=== PATIENT | female | born 1985 | race Caucasian/White ===

== ENCOUNTER 2018-06-17 21:48 | Emergency (ER) | payer OTHER ==
--- NOTE | 2018-06-17 22:02 | ED Physician Documentation ---
PD HPI CHEST PAIN - Stated complaint Stated Complaint: CHEST PX - Chief complaint Chief Complaint: Cardiac - History obtained from History obtained from: Patient - History of Present Illness Timing - onset: Enter time (19:30), Today Timing - onset during: Rest (sitting in car) Timing - details: Abrupt onset Quality: Pressure (heaviness), Tightness Location: Substernal Radiation: Other (does not radiate) Improved by: Nothing Worsened by: Other (no exacerbating factors) Associated symptoms: No: Shortness of air, Diaphoresis Similar symptoms before: Has not had sx before Recently seen: Not recently seen (bilateral knee surgery March 11) Review of Systems Constitutional: denies: Fever, Chills, Sweats Cardiac: reports: Chest pain / pressure. denies: Palpitations, Pedal edema, Calf pain Respiratory: reports: Reviewed and negative GI: denies: Abdominal Pain, Nausea, Vomiting PD PAST MEDICAL HISTORY - Past Medical History Past Medical History: Yes Other Past Medical History: yykqkqk-baytk-kzpuo, ovarian cysts, anemia (iron deficiency) - Past Surgical History Past Surgical History: Yes Ortho: Other (bilateral knee surgery (tendon repair)) - Allergies Allergies/Adverse Reactions: Allergies Allergy/AdvReac Type Severity Reaction Status Date / Time acetaminophen [From Vicodin] Allergy Itching Verified 06/17/18 23:39 carbamazepine [From Tegretol] Allergy Unknown Verified 06/17/18 23:39 hydrocodone [From Vicodin] Allergy Itching Verified 06/17/18 23:39 hydromorphone [From Dilaudid] Allergy Itching Verified 06/17/18 23:39 lithium Allergy Hives Verified 06/17/18 23:39 meperidine [From Demerol] Allergy Respiratory Verified 06/17/18 23:39 methadone Allergy Itching Verified 06/17/18 23:39 morphine Allergy Unknown Verified 06/17/18 23:39 oxycodone [From Percocet] Allergy Itching Verified 06/17/18 23:39 Sulfa (Sulfonamide Allergy Hives Verified 06/17/18 23:39 Antibiotics) tetanus immune globulin Allergy Respiratory Verified 06/17/18 23:39 PD ED PE NORMAL - Vitals Vital signs reviewed: Yes - General General: Alert and oriented X 3, No acute distress, Well developed/nourished - Cardiac Cardiac: RRR, No murmur - Respiratory Respiratory: No respiratory distress, Clear bilaterally - Abdomen Abdomen: Soft, Non tender - Derm Derm: Normal color, Warm and dry - Extremities Extremities: No edema Results - Vitals Vitals: Vital Signs - 24 hr 06/17/18 06/18/18 21:57 00:56 Temperature 37.1 C Heart Rate 101 H 84 Respiratory 18 20 Rate Blood Pressure 118/96 H 105/80 O2 Saturation 100 99 Oxygen O2 Source Room air - EKG (time done) No standard instances Rate: Rate (enter#) (97) Rhythm: NSR [place]: Normal Intervals: Normal GA QRS: Normal Ischemia: Normal ST segments - Labs Labs: Laboratory Tests 06/17/18 06/17/18 06/17/18 23:24 23:24 23:24 WBC 8.4 RBC 4.36 Hgb 12.1 Hct 35.5 L MCV 81.3 MCH 27.6 MCHC 34.0 RDW 13.1 Plt Count 189 MPV 8.7 Neut # (Auto) 5.5 Lymph # (Auto) 2.1 [place] # (Auto) 0.6 Eos # (Auto) 0.1 Baso # (Auto) 0.1 Absolute Nucleated RBC 0.00 Nucleated RBC % 0.0 D-Dimer Sodium 135 Potassium 3.6 Chloride 103 Carbon Dioxide 26 Anion Gap 6.0 BUN 14 Creatinine 0.4 Estimated GFR (MDRD) 184 Glucose 101 H Calcium 9.1 Troponin I < 0.04 06/17/18 23:25 WBC RBC Hgb Hct MCV MCH MCHC RDW Plt Count MPV Neut # (Auto) Lymph # (Auto) [place] # (Auto) Eos # (Auto) Baso # (Auto) Absolute Nucleated RBC Nucleated RBC % D-Dimer < 200.0 L Sodium Potassium Chloride Carbon Dioxide Anion Gap BUN Creatinine Estimated GFR (MDRD) Glucose Calcium Troponin I - Rads (name of study) chest xray Radiology: Prelim report reviewed, See rad report PD MEDICAL DECISION MAKING - ED course Complexity details: reviewed results, re-evaluated patient, considered differential, d/w patient Departure - Departure Disposition: 01 Home, Self Care Clinical Impression: Chest pain Condition: Good Instructions: ED Chest Pain Atypical Unkn Cause Follow-Up: AJ MARTINS PA-C [Primary Care Provider] - Discharge Date/Time: 06/18/18 01:15
--- NOTE | 2018-06-17 23:07 | XRAY Report ---
Reason: chest pain Procedure Date: 06/17/2018 Accession Number: [id number] / [id number] Procedure: XR - Chest 2 View X-Ray CPT Code: 40246 FULL RESULT: EXAM: CHEST RADIOGRAPHY EXAM DATE: 06/17/2018 11:02 PM. CLINICAL HISTORY: Chest pain. COMPARISON: None. TECHNIQUE: 2 views. FINDINGS: Lungs/Pleura: No alveolar consolidation or pleural effusion seen. No pneumothorax. Mediastinum: Heart and mediastinal contours are unremarkable. Other: None. IMPRESSION: 1. No acute abnormality seen in the chest. RADIA
[2018-06-17 23:28] LABS: BASOPHILS # (AUTO) 0.1 10^3/uL (0.0-0.1); BASOPHILS % (AUTO) 0.8 %; EOSINOPHILS # (AUTO) 0.1 10^3/uL (0.0-0.7); EOSINOPHILS % (AUTO) 1.4 %; HGB - HEMOGLOBIN 12.1 g/dL (12.0-16.0); LYMPHOCYTES # (AUTO) 2.1 10^3/uL (1.5-3.5); LYMPHOCYTES % (AUTO) 25.1 %; MEAN CORPUSCULAR HEMOGLOBIN 27.6 pg (27.0-31.0); MEAN CORPUSCULAR VOLUME 81.3 fL (81.0-99.0); MEAN PLATELET VOLUME 8.7 fL (7.9-10.8); MONOCYTES # (AUTO) 0.6 10^3/uL (0.0-1.0); MONOCYTES % (AUTO) 7.1 %; NEUTROPHILS # (AUTO) 5.5 10^3/uL (1.5-6.6); NEUTROPHILS % (AUTO) 65.6 %; PLT - PLATELET COUNT 189 10^3/uL (130-450); RED BLOOD COUNT 4.36 10^6/uL (4.20-5.40); RED CELL DISTRIBUTION WIDTH 13.1 % (12.0-15.0); WHITE BLOOD COUNT 8.4 x10^3/uL (4.8-10.8)
[2018-06-17 23:42] LABS: CALCIUM 9.1 mg/dL (8.5-10.3); CREATININE 0.4 mg/dL (0.4-1.0)
[2018-06-18 00:57] VITALS: BP 105/80
== END 2018-06-18 01:15 | disposition home or self-care (01) ==
LOC: ED 21:48
DX: R07.9 Chest pain, unspecified (principal)
CPT/HCPCS: 36415; 71046; 80048; 84484; 85025; 85379; 93005; 99283

== ENCOUNTER 2018-07-07 08:06 | Emergency (ER) | payer OTHER ==
[2018-07-07 08:15] VITALS: BP 138/99
--- NOTE | 2018-07-07 08:58 | ED Physician Documentation ---
History of Present Illness - Stated complaint Stated Complaint: UNDER ARM SWELLING - Chief complaint Chief Complaint: General - Additonal information Additional information: hx from pt 33 f to ED with R axillary adenopathy and right upper chest erythema and swelling seen by PMD a few days ago at [facility] and had a sono that showed abn axillary adenopathy told to go to the ER of worse no fever hurts to breath no abd pian no leg swelling no hand infection denies preg s/p tubal not breast feeding Review of Systems Constitutional: reports: Other (ill feeling). denies: Fever, Chills Cardiac: reports: Chest pain / pressure (right upper with swelling and mild erythema) Respiratory: denies: Dyspnea GI: denies: Abdominal Pain : denies: Now EGA Musculoskeletal: reports: Other (axillary pain and nodes) Endocrine: denies: Easy bruising / bleeding Immunocompromised: denies: Immunocompromised PD PAST MEDICAL HISTORY - Past Surgical History Past Surgical History: Yes Ortho: Other - Present Medications Home Medications: Ambulatory Orders Medication Instructions Recorded Confirmed Cephalexin [Keflex] 500 mg PO Q6H #28 capsule 07/07/18 traMADol [Ultram] PRN 07/07/18 - Allergies Allergies/Adverse Reactions: Allergies Allergy/AdvReac Type Severity Reaction Status Date / Time acetaminophen [From Vicodin] Allergy Itching Verified 07/07/18 08:15 carbamazepine [From Tegretol] Allergy Unknown Verified 07/07/18 08:15 hydrocodone [From Vicodin] Allergy Itching Verified 07/07/18 08:15 hydromorphone [From Dilaudid] Allergy Itching Verified 07/07/18 08:15 lithium Allergy Hives Verified 07/07/18 08:15 meperidine [From Demerol] Allergy Respiratory Verified 07/07/18 08:15 methadone Allergy Itching Verified 07/07/18 08:15 morphine Allergy Unknown Verified 07/07/18 08:15 oxycodone [From Percocet] Allergy Itching Verified 07/07/18 08:15 Sulfa (Sulfonamide Allergy Hives Verified 07/07/18 08:15 Antibiotics) tetanus immune globulin Allergy Respiratory Verified 06/17/18 23:39 - Social History Does the pt smoke?: No Smoking Status: Never smoker Does the pt drink ETOH?: No Does the pt have substance abuse?: No - Immunizations Immunizations are current?: Yes PD ED PE NORMAL - Vitals Vital signs reviewed: Yes - General General: Alert and oriented X 3 - Neck Neck: No: No adenopathy (no abd ant cervial nodes) - Cardiac Cardiac: RRR - Respiratory Respiratory: No respiratory distress, Other (ant upper right chest with mild erytehma and fullness but no discreet mass, no palp breast mass and no nipple dc, no supra infraclavicular adenopathy appreciated) - Abdomen Abdomen: Soft, Non tender, No organomegaly - Derm Derm: Other (erythema to ant R chest wall) - Extremities Extremities: Other (R axillary adenopathy, no inguinal adenopathy) - Neuro Neuro: Alert and oriented X 3 Results - Vitals Vitals: Vital Signs - 24 hr 07/07/18 08:10 Temperature 36.2 C L Heart Rate 87 Respiratory 16 Rate Blood Pressure 138/99 H O2 Saturation 98 Oxygen O2 Source Room air - Labs Labs: Laboratory Tests 07/07/18 07/07/18 07/07/18 09:03 09:03 09:19 WBC 4.0 L RBC 4.54 Hgb 12.3 Hct 35.9 L MCV 79.1 L MCH 27.1 MCHC 34.2 RDW 13.8 Plt Count 170 MPV 8.1 Neut # (Auto) 1.9 Lymph # (Auto) 1.7 [place] # (Auto) 0.4 Eos # (Auto) 0.1 Baso # (Auto) 0.0 Absolute Nucleated RBC 0.00 Nucleated RBC % 0.0 Sodium 134 L Potassium 3.5 Chloride 104 Carbon Dioxide 22 Anion Gap 8.0 BUN 14 Creatinine 0.5 Estimated GFR (MDRD) 142 Glucose 100 Calcium 9.1 Ur Specific [place] 1.025 Urine HCG, Qual NEGATIVE - Rads (name of study) CT chest with contrast Radiology: See rad report (bulky adenopathy to R axillary region up to 3.6 cm could be malignant infectious or inflammatory, fat stranding, 1 cm L breast nodule, 0.4 cm R lung nodule) PD MEDICAL DECISION MAKING - ED course ED course: abn axillary adenopathy concern for malignancy referred pt to surg for bx and PMD for mammo and further wup I called and spoke to PMD personally to relay concerns and my thoughts and plans Departure - Departure Disposition: 01 Home, Self Care Clinical Impression: Axillary adenopathy, Breast nodule, Lung nodule Condition: Good Instructions: Lymphadenopathy Follow-Up: BRANDY MCGEE [Primary Care Provider] - Luis Cox MD [Provider Admit Priv/Credential] - (for node biopsy) Prescriptions: Cephalexin [Keflex] 500 mg PO Q6H #28 capsule Comments: The blood work was fine. The CT scan showed numerous abnormally enlarged lymph nodes in the right axillary (armpit region) There were no abnormal nodes in the other axillae or in the chest. These nodes could be enlarged due to infection or due to cancer We can do a trial of antibiotics But you also need to be checked for cancer There was a nodule in your right lung and in your left breast. You will need further work up beyond what I can do in the ER - specifically you need a mammogram and a biopsy of the abnormal lymph nodes and perhaps CT scans of other parts of your body. I have referred you to the surgeons office for the biopsy And called your PMD to let him/her know to order the mammogram Forms: Activity restrictions Discharge Date/Time: 07/07/18 13:30
[2018-07-07 09:19] LABS: BASOPHILS % (AUTO) 0.2 %; EOSINOPHILS # (AUTO) 0.1 10^3/uL (0.0-0.7); EOSINOPHILS % (AUTO) 2.5 %; HGB - HEMOGLOBIN 12.3 g/dL (12.0-16.0); LYMPHOCYTES # (AUTO) 1.7 10^3/uL (1.5-3.5); LYMPHOCYTES % (AUTO) 41.7 %; MEAN CORPUSCULAR HEMOGLOBIN 27.1 pg (27.0-31.0); MEAN CORPUSCULAR HGB CONC 34.2 g/dL (32.0-36.0); MEAN CORPUSCULAR VOLUME 79.1 fL (81.0-99.0); MEAN PLATELET VOLUME 8.1 fL (7.9-10.8); MONOCYTES # (AUTO) 0.4 10^3/uL (0.0-1.0); MONOCYTES % (AUTO) 9.8 %; NEUTROPHILS # (AUTO) 1.9 10^3/uL (1.5-6.6); NEUTROPHILS % (AUTO) 45.8 %; PLT - PLATELET COUNT 170 10^3/uL (130-450); RED BLOOD COUNT 4.54 10^6/uL (4.20-5.40); RED CELL DISTRIBUTION WIDTH 13.8 % (12.0-15.0)
[2018-07-07 09:29] LABS: CALCIUM 9.1 mg/dL (8.5-10.3); CREATININE 0.5 mg/dL (0.4-1.0)
[2018-07-07 09:44] LABS: HCG UR QUAL NEGATIVE
[2018-07-07] MEDS ORDERED: IOVERSOL 320 100 ML VIAL IVP ONE ×2 (10:33→10:59)
--- NOTE | 2018-07-07 12:00 | CT Report ---
Reason: R upper chest swellign and erythema axillary adeno Procedure Date: 07/07/2018 Accession Number: [id number] / [id number] Procedure: CT - Chest W/ CPT Code: FULL RESULT: EXAM: CT CHEST EXAM DATE: 07/07/2018 10:58 AM. CLINICAL HISTORY: Right upper chest wall swelling, erythema and adenopathy. COMPARISONS: None. TECHNIQUE: Routine helical CT imaging was performed through the chest. IV contrast: 72 cc of Optiray 320. Reconstructions: Coronal and sagittal. In accordance with CT protocol optimization, one or more of the following dose reduction techniques were utilized for this exam: automated exposure control, adjustment of mA and/or KV based on patient size, or use of iterative reconstructive technique. FINDINGS: Lungs/Pleura: No consolidation or edema. No effusions or pneumothorax. No endobronchial lesions. No bronchial wall thickening. 0.4 cm anterolateral right lower lobe nodule abutting the fissure on image 4, 31. No concerning lung mass. Mediastinum: Normal. No adenopathy or masses. The heart and great vessels are normal. Bones: No osteoblastic or osteolytic lesions. Gentle convex to the left curvature of the midthoracic spine. Visualized Abdomen: Small paraesophageal hernia. No adrenal nodules are identified. Spleen is unremarkable. Normal pancreas. Normal common bile duct and gallbladder. Visualized portions of the liver and kidneys are normal. No bulky upper abdominal adenopathy. Other: No definite breast mass. At least 2 large right axillary lymph nodes measuring 3.6 x 2.5 cm on image 15 and 1.9 x 1.4 cm on image 18 are noted. Additional smaller subcentimeter lymph nodes are present in the right axillary region. Mild fat stranding is present in the right axillary region. No significant left axillary or internal mammary adenopathy. 1 cm central left breast nodule on image 3, 26. No definite right-sided breast mass. IMPRESSION: 1. Bulky right axially adenopathy as described above. Both malignant and infectious/inflammatory processes are in the differential. No associated mediastinal or hilar, supraclavicular, internal mammary or left axillary adenopathy. Recommend workup to exclude malignancy. Patient may benefit from a CT of the abdomen and pelvis. 2. 0.4 cm right lower lobe nodule. No consolidation, effusions or pneumothorax. 3. Indeterminate 1 cm left breast nodule. This could be better evaluated with ultrasound on an outpatient basis. No right breast mass lesion. RADIA
== END 2018-07-07 13:30 | disposition home or self-care (01) ==
LOC: ED 08:06
DX: R59.0 Localized enlarged lymph nodes (principal); N63.0 Unspecified lump in unspecified breast; R91.1 Solitary pulmonary nodule
CPT/HCPCS: 36415; 71260; 80048; 81025; 85025; 87040; 99283; Q9967

== ENCOUNTER 2018-07-22 14:18 | Outpatient (CLI) | payer OTHER | END 2018-07-22 14:19 | disposition home or self-care (01) | LOC: EMS 14:18 | PROVIDERS: ATTEND Surgery | DX: R10.9 Unspecified abdominal pain (principal); R55 Syncope and collapse; R11.2 Nausea with vomiting, unspecified; M25.511 Pain in right shoulder; M79.601 Pain in right arm ==

== ENCOUNTER 2018-07-22 14:44 | Emergency (ER) | payer OTHER ==
[2018-07-22] MEDS ORDERED: DEXAMETHASONE 10 MG/ML VIAL IVP STA (15:16)
[2018-07-22] MEDS ORDERED: SODIUM CHLORIDE 0.9% 1,000 ML IV ONE ×2 (15:16→16:27)
--- NOTE | 2018-07-22 15:19 | ED Physician Documentation ---
PD HPI SYNCOPE - Stated complaint Stated Complaint: SYNCOPE - Chief complaint Chief Complaint: Abd Pain - History obtained from History obtained from: Patient - History of Present Illness Witnessed: Witnessed Timing - onset: Today Duration: Seconds Preceding symptoms: Vision changes, Light headed, Generalized weakness Associated symptoms: Nausea / vomiting. No: Seizure, Incontinant of urine, Incontinant of stool, Headache, Vision changes Contributing factors: Decreased PO intake, Just stood up Injury occurred: None Similar symptoms before: Has not had sx before Recently seen: Emergency Dept - Additional information Additional information: 33-year-old female with a history of Eeghkem-Xzodf-Wqnxx tooth has developed some pain in her right hand and some axillary adenopathy. She does have some cats and has had multiple scratches to her hands. She reports that she was seen in the emergency department more than 10 days ago with adenopathy and she has fi nished her antibiotic. Today she was at home went to sit on the commode and found herself slumped against the wall. She then went in to get her up for his watch and found that she had a second syncopal episode in the room. She did not injure herself on either these episodes. She does indicate that she has had some vomiting today and has not been able to hold down any water. She reports that yesterday she drank 10 bottles of water. Review of Systems Constitutional: reports: Fever, Chills, Fatigue Eyes: denies: Decreased vision Ears: denies: Ear pain Nose: denies: Rhinorrhea / runny nose, Congestion Throat: denies: Sore throat Cardiac: denies: Chest pain / pressure, Palpitations Respiratory: denies: Dyspnea, Cough GI: reports: Nausea, Vomiting. denies: Abdominal Pain : denies: Dysuria, Frequency Skin: denies: Rash Musculoskeletal: reports: Extremity pain. denies: Neck pain, Back pain Neurologic: reports: Generalized weakness. denies: Focal weakness, Numbness PD PAST MEDICAL HISTORY - Past Surgical History Past Surgical History: Yes Ortho: Other - Present Medications Home Medications: Ambulatory Orders Medication Instructions Recorded Confirmed traMADol [Ultram] 50 mg PO PRN PRN 07/07/18 07/22/18 Azithromycin [Zithromax] 250 mg PO DAILY #6 tablet 07/22/18 - Allergies Allergies/Adverse Reactions: Allergies Allergy/AdvReac Type Severity Reaction Status Date / Time acetaminophen [From Vicodin] Allergy Itching Verified 07/22/18 14:56 carbamazepine [From Tegretol] Allergy Unknown Verified 07/22/18 14:56 hydrocodone [From Vicodin] Allergy Itching Verified 07/22/18 14:56 hydromorphone [From Dilaudid] Allergy Itching Verified 07/22/18 14:56 lithium Allergy Hives Verified 07/22/18 14:56 meperidine [From Demerol] Allergy Respiratory Verified 07/22/18 14:56 methadone Allergy Itching Verified 07/22/18 14:56 morphine Allergy Unknown Verified 07/22/18 14:56 oxycodone [From Percocet] Allergy Itching Verified 07/22/18 14:56 Sulfa (Sulfonamide Allergy Hives Verified 07/22/18 14:56 Antibiotics) tetanus immune globulin Allergy Respiratory Verified 06/17/18 23:39 - Social History Does the pt smoke?: No Smoking Status: Never smoker Does the pt drink ETOH?: No Does the pt have substance abuse?: No - Immunizations Immunizations are current?: Yes PD ED PE NORMAL - Vitals Vital signs reviewed: Yes (normal ) - General General: Alert and oriented X 3, No acute distress, Well developed/nourished - HEENT HEENT: Atraumatic, PERRL, EOMI - Neck Neck: Supple, no meningeal sign, No bony TTP - Cardiac Cardiac: No murmur, Other (tachy to 100) - Respiratory Respiratory: No respiratory distress, Clear bilaterally - Abdomen Abdomen: Soft, Non tender - Back Back: No CVA TTP, No spinal TTP - Derm Derm: Normal color, Warm and dry, No rash - Extremities Extremities: No deformity, No edema, Other (There are multiple small scratches to the fingers on the right hand (patient has a cat). There is some tenerness and fullness to the extensor area of the right index and middle finger. This area is tender to direct palpation with retention of ROM. There is tender adenopathy in the right axilla that is about 1cm in size without overlying erythema or fluctuance. ) - Neuro Neuro: Alert and oriented X 3, lesson instructor 2-12 intact, No motor deficit, No sensory deficit, Normal speech Eye Opening: Spontaneous Motor: Obeys Commands Verbal: Oriented GCS Score: 15 - Psych Psych: Normal mood, Normal affect Results - Vitals Vitals: Vital Signs - 24 hr 07/22/18 07/22/18 07/22/18 14:51 15:03 16:56 Temperature 36.8 C Heart Rate 98 96 97 Respiratory 18 18 16 Rate Blood Pressure 105/69 103/66 101/71 O2 Saturation 99 97 99 Oxygen O2 Source Room air - EKG (time done) 1510 Rate: Rate (enter#) (92) Rhythm: NSR Other comments: Other comments (RSR' in V1) Compare to prior EKG: Changed from prior EKG (SPT 06-17-18 voltage in III and aVf has changed. ) Computer interpretation: Agree with computer - Labs Labs: Laboratory Tests 07/22/18 07/22/18 07/22/18 15:46 15:46 15:46 WBC 4.3 L RBC 4.09 L Hgb 11.2 L Hct 33.1 L MCV 80.9 L MCH 27.4 MCHC 33.9 RDW 14.2 Plt Count 144 MPV 9.0 Neut # (Auto) 3.2 Lymph # (Auto) 0.6 L [place] # (Auto) 0.5 Eos # (Auto) 0.0 Baso # (Auto) 0.0 Absolute Nucleated RBC 0.00 Nucleated RBC % 0.1 Sodium 132 L Potassium 3.2 L Chloride 103 Carbon Dioxide 23 Anion Gap 6.0 BUN 9 Creatinine 0.5 Estimated GFR (MDRD) 142 Glucose 97 Lactic Acid Calcium 8.6 Total Bilirubin 0.6 AST 22 ALT 26 Alkaline Phosphatase 45 Troponin I < 0.04 Total Protein 7.1 Albumin 3.9 Globulin 3.2 Albumin/Globulin Ratio 1.2 Lipase 53 H Urine Color Urine Clarity Urine pH Ur Specific [place] Urine Protein Urine Glucose (UA) Urine Ketones Urine Occult Blood Urine Nitrite Urine Bilirubin Urine Urobilinogen Ur Leukocyte Esterase Ur Microscopic Review Urine Culture Comments Urine HCG, Qual 07/22/18 07/22/18 15:46 16:37 WBC RBC Hgb Hct MCV MCH MCHC RDW Plt Count MPV Neut # (Auto) Lymph # (Auto) [place] # (Auto) Eos # (Auto) Baso # (Auto) Absolute Nucleated RBC Nucleated RBC % Sodium Potassium Chloride Carbon Dioxide Anion Gap BUN Creatinine Estimated GFR (MDRD) Glucose Lactic Acid 0.7 Calcium Total Bilirubin AST ALT Alkaline Phosphatase Troponin I Total Protein Albumin Globulin Albumin/Globulin Ratio Lipase Urine Color YELLOW Urine Clarity CLEAR Urine pH 6.0 Ur Specific [place] <=1.005 Urine Protein NEGATIVE Urine Glucose (UA) NEGATIVE Urine Ketones TRACE Urine Occult Blood NEGATIVE Urine Nitrite NEGATIVE Urine Bilirubin NEGATIVE Urine Urobilinogen 0.2 (NORMAL) Ur Leukocyte Esterase NEGATIVE Ur Microscopic Review NOT INDICATED Urine Culture Comments NOT INDICATED Urine HCG, Qual NEGATIVE Procedures - IVC sono (time) 1520 Bedside IVC sono: IVC measures (cm) (0.88), IVC collapsed c insp (cm) (complete), Dehydration (est 1 liter deficit) PD MEDICAL DECISION MAKING - ED course Complexity details: considered differential, d/w patient ED course: 33-year-old female with axillary lymphadenopathy and fever has multiple small scratches to her hand consistent with cat scratch disease. She has now had a syncopal episode. She does not appear to have responded to the empiric therapy with Keflex. The up-to-date recommendation is for the use of a azithromycin followed by a second round of a azithromycin with rifampin if she has clinical failure.She is found to be dehydrated today and she is administered IV saline and potassium as well as dexamethasone. We will place her on a course of a azithromycin. Departure - Departure Disposition: 01 Home, Self Care Clinical Impression: Cat scratch fever Condition: Stable Instructions: Cat Scratch Disease Follow-Up: [facility] [Provider Group] Prescriptions: Azithromycin [Zithromax] 250 mg PO DAILY #6 tablet
[2018-07-22 16:22] LABS: BASOPHILS % (AUTO) 0.2 %; EOSINOPHILS % (AUTO) 0.1 %; HGB - HEMOGLOBIN 11.2 g/dL (12.0-16.0); LYMPHOCYTES # (AUTO) 0.6 10^3/uL (1.5-3.5); MEAN CORPUSCULAR HEMOGLOBIN 27.4 pg (27.0-31.0); MEAN CORPUSCULAR HGB CONC 33.9 g/dL (32.0-36.0); MEAN CORPUSCULAR VOLUME 80.9 fL (81.0-99.0); MONOCYTES # (AUTO) 0.5 10^3/uL (0.0-1.0); MONOCYTES % (AUTO) 10.9 %; NEUTROPHILS # (AUTO) 3.2 10^3/uL (1.5-6.6); NEUTROPHILS % (AUTO) 74.8 %; PLT - PLATELET COUNT 144 10^3/uL (130-450); RED BLOOD COUNT 4.09 10^6/uL (4.20-5.40); RED CELL DISTRIBUTION WIDTH 14.2 % (12.0-15.0); WHITE BLOOD COUNT 4.3 x10^3/uL (4.8-10.8)
[2018-07-22 16:25] LABS: ALBUMIN 3.9 g/dL (3.2-5.5); ALBUMIN/GLOBULIN RATIO 1.2 (1.0-2.2); BILIRUBIN,TOTAL 0.6 mg/dL (0.2-1.0); CALCIUM 8.6 mg/dL (8.5-10.3); CREATININE 0.5 mg/dL (0.4-1.0); TOTAL PROTEIN 7.1 g/dL (6.7-8.2)
[2018-07-22] MEDS ORDERED: POTASSIUM BICARB 25 MEQ TABLET PO STA (16:26)
[2018-07-22 16:45] LABS: BILIRUBIN,URINE NEGATIVE (NEGATIVE); CLARITY,URINE CLEAR (CLEAR); GLUCOSE, URINE (UA) NEGATIVE (NEGATIVE); KETONES,URINE (UA) TRACE mg/dL (NEGATIVE); LEUKOCYTE ESTERASE, URINE NEGATIVE (NEGATIVE); NITRITE,URINE NEGATIVE (NEGATIVE); OCCULT BLOOD,URINE NEGATIVE (NEGATIVE); PROTEIN,URINE NEGATIVE (NEGATIVE); UROBILINOGEN,URINE 0.2 (NORMAL) E.U./dL (NORMAL)
[2018-07-22 16:47] LABS: HCG UR QUAL NEGATIVE
[2018-07-22 18:25] VITALS: BP 110/86
== END 2018-07-22 18:00 | disposition home or self-care (01) ==
LOC: EDUNIT# → ED 14:44
DX: A28.1 Cat-scratch disease (principal); R55 Syncope and collapse; E86.0 Dehydration; S60.419A Abrasion of unspecified finger, initial encounter; W55.03XA Scratched by cat, initial encounter; R59.0 Localized enlarged lymph nodes
CPT/HCPCS: 36415; 80053; 81003; 81025; 83605; 83690; 84484; 85025; 87040; 93005; 96361; 96374; 99283; 99284; A9270; 81001; 87086

== ENCOUNTER 2018-09-16 13:11 | Outpatient (CLI) | payer OTHER ==
[~2018-09-16 13:11] MED LIST: BUFFERED LIDOCAINE 10 ML SYRINGE ONE
[2018-09-16] MEDS ORDERED: BUFFERED LIDOCAINE 10 ML SYRINGE IU ONE (15:09)
--- NOTE | 2018-09-16 16:55 | Ultrasound Report ---
Reason: ENLARGED RT AXILLARY LYMPH NODE, CORE BIOPSY Procedure Date: 09/16/2018 Accession Number: [id number] / [id number] Procedure: US - Needle Bx Lymph Node CPT Code: FULL RESULT: EXAM: Needle Bx Lymph Node DATE: 09/16/2018 3:02 PM CLINICAL HISTORY: 33-year-old with unexplained right axillary adenopathy chest CT 07/07/2018. TECHNIQUE: Informed consent was obtained for biopsy and marker placement. Entry site was localized and marked over the right axilla, and skin site was prepped and draped in the usual sterile fashion. Skin and deeper tissues were anesthetized with 10 cc of 1% lidocaine. A small dermatotomy was made in the skin. 13-gauge coaxial needle guide was advanced into position. Through the needle guide, 3 separate passes were made with a 14-gauge achieve needle biopsy system with return of long cores of tissue. Samples were sent in formalin for analysis. Marker was placed into the biopsied lymph node and clip position confirmed with ultrasound. Following clip placement, [place] were removed and hemostasis was achieved. Bandaged and discharged in good condition. No immediate post procedural complications. COMPARISON: Outside mammography and ultrasound dated 07/11/2018. Chest CT 07/07/2018. IMPRESSION: Right axilla: Successful core biopsy of right axillary adenopathy. Final disposition is pending histology results. An addendum to this report will be issued when histology becomes available.
== END 2018-09-16 13:12 | disposition home or self-care (01) ==
LOC: DI 13:11
PROVIDERS: ATTEND Surgery
DX: R59.0 Localized enlarged lymph nodes (principal)
CPT/HCPCS: 38505

== ENCOUNTER 2020-05-15 09:49 | Outpatient (CLI) | payer OTHER ==
[2020-05-15] MEDS ORDERED: GADOBUTROL 7.5 MMOL/7.5 ML VIAL ONE (10:44)
[2020-05-15] MEDS ORDERED: GADOBUTROL 7.5 MMOL/7.5 ML VIAL IVP ONE (11:24)
--- NOTE | 2020-05-15 11:53 | MRI Report ---
PROCEDURE: Brain W/WO INDICATIONS: HEADACHE CONTRAST: IV CONTRAST: Gadavist ml: 7 TECHNIQUE: Noncontrast axial T1 spin echo, axial T2 fast spin echo, sagittal and axial FLAIR, coronal T2 fast sp in echo, axial gradient echo, axial diffusion and ADC through the brain. After the administration of contrast, axial and coronal T1 spin echo with fat saturation through the brain. COMPARISON: None. FINDINGS: Image quality: Excellent. CSF spaces: Basal cisterns are patent. No extra-axial fluid collections. Ventricles are normal in size and shape. Brain: No midline shift. No intracranial bleeds or masses. No abnormal intracranial enhancement. There is cerebral volume loss for age. There is periventricular white matter chronic small vessel is chemic change. The brainstem appears normal. Diffusion-weighted images demonstrate no acute ischemi c insults. No chronic ischemic insults. Normal intravascular flow voids are present. Skull and face: Calvarial marrow is normal in signal. Orbits appear normal. There is suboptimal fa t saturation within the intraorbital fat. Sinuses: Sinuses and mastoids appear clear. IMPRESSION: 1. No acute process. 2. No explanation for headache. 3. No recent infarct. Reviewed by: Arleth Randhawa MD on 05/15/2020 10:52 AM [facility] Approved by: Arleth Randhawa MD on 05/15/2020 10:52 AM [facility] Station ID: [id number]
== END 2020-05-15 09:50 | disposition home or self-care (01) ==
LOC: DI 09:49
PROVIDERS: ATTEND Family Medicine
DX: R51.9 Headache, unspecified (principal)
CPT/HCPCS: 70553; A9585